=== PATIENT | male | born 1990 | race Caucasian/White ===

== ENCOUNTER 2020-02-20 10:13 | Day surgery (SDC) | payer MEDICAID ==
[~2020-02-20] VITALS: Ht 165.1 cm; Wt 80.9 kg
[~2020-02-20 10:13] MED LIST: SODIUM CHLORIDE 0.9% 1,000 ML IV ONE; SODIUM CHLORIDE 0.9% 1,000 ML ONE
[2020-02-20] MEDS ORDERED: PROPOFOL 1% 20 ML VIAL IVP ONE (10:14)
[2020-02-20] MEDS ORDERED: LIDOCAINE/PF 2% 5 ML VIAL IM ONE (10:14)
[2020-02-20] MEDS ORDERED: OMEP20 PO (11:09)
== END 2020-02-20 13:00 | disposition home or self-care (01) ==
LOC: SURGERY 10:13
PROVIDERS: ATTEND Internal Medicine Gastroenterology
DX: K29.50 Unspecified chronic gastritis without bleeding (principal); K20.0 Eosinophilic esophagitis; A48.8 Other specified bacterial diseases; K21.9 Gastro-esophageal reflux disease without esophagitis; Z78.9 Other specified health status; Z87.891 Personal history of nicotine dependence
CPT/HCPCS: 43239; 88305; 88312; 88313; C1769; J2704; J3490; J7030